=== PATIENT | female | born 2000 | race Caucasian/White ===

== ENCOUNTER 2024-05-01 09:09 | Emergency (ER) | payer SELFPAY ==
[~2024-05-01] VITALS: Ht 167.6 cm; Wt 115.9 kg
[~2024-05-01 09:09] MED LIST: REGLAN10 M2 PO; ZOFRAN ODT4 MG PO
[2024-05-01 09:51] LABS: BASO # 0.04 K/mm3 (0.02-0.10); EOS # 0.08 K/mm3 (0.04-0.40); EOS % 1.4 % (1.0-5.0); HEMATOCRIT 42.3 % (37.0-47.0); HEMOGLOBIN 14.8 g/dL (12.5-16.0); LYMPH# 1.96 K/mm3 (1.50-4.00); MEAN CELL VOLUME 88 fl (78-100); MEAN CORPUSCULAR HEMOGLOBIN 31 pg (27-31); MEAN CORPUSCULAR HGB CONC 35 g/dL (33-37); MEAN PLATELET VOLUME 10.4 fl (7.4-10.4); MONO # 0.29 K/mm3 (0.20-0.80); NEU # 3.29 K/mm3 (1.40-6.50); PLATELET COUNT 247 K/mm3 (130-400); RED CELL DISTRIBUTION WIDTH 11.5 % (11.5-14.5); WHITE BLOOD COUNT 5.7 K/mm3 (4.8-10.8)
[2024-05-01 09:58] LABS: ALBUMIN 4.3 g/dL (3.5-5.0)
[2024-05-01 09:59] LABS: CALCIUM 9.9 mg/dL (8.3-10.5)
[2024-05-01 10:00] LABS: TOTAL PROTEIN 6.5 g/dL (6.4-8.3)
[2024-05-01 10:02] LABS: TOTAL BILIRUBIN 0.4 mg/dL (0.2-1.2)
[2024-05-01 10:22] VITALS: BP 121/86
== END 2024-05-01 10:20 | disposition home or self-care (01) ==
LOC: ED 09:09
PROVIDERS: Physician Assistant
DX: N93.9 Abnormal uterine and vaginal bleeding, unspecified (principal)

== ENCOUNTER 2024-05-31 20:12 | Emergency (ER) | payer SELFPAY ==
[2024-05-31 20:27] VITALS: BP 146/87
[2024-05-31 21:04] LABS: URINE APPEARANCE CLEAR (CLEAR); URINE BILIRUBIN NEGATIVE (NEGATIVE); URINE BLOOD NEGATIVE (NEGATIVE); URINE COLOR YELLOW (YELLOW); URINE GLUCOSE NEGATIVE (NEGATIVE); URINE KETONE NEGATIVE (NEGATIVE); URINE LEUKOCYTE ESTERASE NEGATIVE (NEGATIVE); URINE MUCUS PRESENT (NOT PRESENT); URINE NITRATE NEGATIVE (NEGATIVE); URINE PROTEIN(semi-quant) NEGATIVE (NEGATIVE)
== END 2024-05-31 21:17 | disposition home or self-care (01) ==
LOC: ED 20:12
PROVIDERS: Nurse Practitioner
DX: R11.2 Nausea with vomiting, unspecified (principal); R53.83 Other fatigue

== ENCOUNTER 2024-06-04 12:05 | Emergency (ER) | payer SELFPAY ==
[~2024-06-04] VITALS: Ht 167.6 cm; Wt 118.3 kg
[2024-06-04 13:30] LABS: BASO # 0.04 K/mm3 (0.02-0.10); EOS # 0.07 K/mm3 (0.04-0.40); EOS % 0.8 % (1.0-5.0); HEMOGLOBIN 13.7 g/dL (12.5-16.0); LYMPH# 1.51 K/mm3 (1.50-4.00); MEAN CELL VOLUME 89 fl (78-100); MEAN CORPUSCULAR HEMOGLOBIN 31 pg (27-31); MEAN CORPUSCULAR HGB CONC 34 g/dL (33-37); MEAN PLATELET VOLUME 10.2 fl (7.4-10.4); MONO # 0.41 K/mm3 (0.20-0.80); NEU # 6.79 K/mm3 (1.40-6.50); PLATELET COUNT 233 K/mm3 (130-400); RED BLOOD COUNT 4.49 M/mm3 (4.10-5.30); RED CELL DISTRIBUTION WIDTH 11.6 % (11.5-14.5); WHITE BLOOD COUNT 8.8 K/mm3 (4.8-10.8)
[2024-06-04 13:36] LABS: ALBUMIN 4.1 g/dL (3.5-5.0); CALCIUM 9.4 mg/dL (8.3-10.5)
[2024-06-04 13:37] LABS: TOTAL PROTEIN 6.2 g/dL (6.4-8.3)
[2024-06-04 13:40] LABS: TOTAL BILIRUBIN 0.8 mg/dL (0.2-1.2)
[2024-06-04 14:06] LABS: PH-URINE 8.5 (5.0 - 8.0); URINE APPEARANCE CLOUDY (CLEAR); URINE BILIRUBIN NEGATIVE (NEGATIVE); URINE BLOOD 2+ (NEGATIVE); URINE COLOR YELLOW (YELLOW); URINE GLUCOSE NEGATIVE (NEGATIVE); URINE KETONE NEGATIVE (NEGATIVE); URINE NITRATE NEGATIVE (NEGATIVE); URINE PROTEIN(semi-quant) 2+ (NEGATIVE)
[2024-06-04 14:07] LABS: URINE LEUKOCYTE ESTERASE 3+ (NEGATIVE); URINE MUCUS PRESENT (NOT PRESENT); URINE WBC >50 /hpf (0-3)
[2024-06-04 14:13] LABS: URINE WBC >50 /hpf (0-3)
[2024-06-04 14:14] LABS: URINE MUCUS PRESENT (NOT PRESENT)
[2024-06-04] MEDS ORDERED: Nitrofurantoin (Mono/Macro) 100 MG CAPSULE PO ONE (14:45)
[2024-06-04] MEDS ORDERED: MACROBID 100 M100 MG PO (15:25)
[2024-06-04 15:37] VITALS: BP 112/67
== END 2024-06-04 16:07 | disposition home or self-care (01) ==
LOC: ED 12:05
PROVIDERS: Family Medicine
DX: R10.12 Left upper quadrant pain (principal); R10.32 Left lower quadrant pain; R30.0 Dysuria; R35.0 Frequency of micturition

== ENCOUNTER 2024-07-02 19:54 | Emergency (ER) | payer SELFPAY ==
[~2024-07-02] VITALS: Ht 167.6 cm; Wt 117.6 kg
[~2024-07-02 19:54] MED LIST changes: +MACROBID 100 M100 MG PO
[2024-07-02 20:33] LABS: URINE APPEARANCE CLOUDY (CLEAR); URINE COLOR YELLOW (YELLOW)
[2024-07-02 20:34] LABS: URINE BILIRUBIN 1+ (NEGATIVE); URINE BLOOD NEGATIVE (NEGATIVE); URINE GLUCOSE NEGATIVE (NEGATIVE); URINE KETONE TRACE (NEGATIVE); URINE LEUKOCYTE ESTERASE 2+ (NEGATIVE); URINE NITRATE NEGATIVE (NEGATIVE); URINE PROTEIN(semi-quant) TRACE (NEGATIVE); URINE WBC 16-30 /hpf (0-3)
[2024-07-02 20:35] LABS: URINE MUCUS PRESENT (NOT PRESENT)
[2024-07-02] MEDS ORDERED: MACROBID 100 M100 MG PO (20:40)
[2024-07-02] MEDS ORDERED: Nitrofurantoin (Mono/Macro) 100 MG CAPSULE PO ONE (20:45)
[2024-07-02] MEDS ORDERED: CEFDINIR300 MG PO (20:50)
[2024-07-02] MEDS ORDERED: Cefdinir 300 MG CAP PO ONE (21:15)
[2024-07-02 21:24] VITALS: BP 112/81
== END 2024-07-02 21:24 | disposition home or self-care (01) ==
LOC: ED 19:54
PROVIDERS: Physician Assistant
DX: N39.0 Urinary tract infection, site not specified (principal); Z88.1 Allergy status to other antibiotic agents

== ENCOUNTER → 2024-07-17 | Outpatient (CLI) | payer SELFPAY ==
[~2024-07-17] MED LIST changes: +CEFDINIR300 MG PO
== END ==
LOC: LAB 18:59
DX: R30.0 Dysuria (principal)

== ENCOUNTER 2024-08-08 20:00 | Emergency (ER) | payer SELFPAY ==
[2024-08-08] MEDS ORDERED: KETOROLAC10 MG PO (21:36)
[2024-08-08] MEDS ORDERED: ZOFRAN ODT4 MG PO (21:36)
[2024-08-08] MEDS ORDERED: Home Ketorolac 10 MG #4 TABS/PACK PO ONE (21:45)
[2024-08-08] MEDS ORDERED: Home Ondansetron ODT 4 MG #2 ODT/PACK PO ONE (21:45)
[2024-08-08] MEDS ORDERED: Ketorolac 10 MG TAB PO ONE (21:45)
[2024-08-08 23:02] VITALS: BP 134/68
== END 2024-08-08 21:51 | disposition home or self-care (01) ==
LOC: ED 20:00
DX: A08.4 Viral intestinal infection, unspecified (principal); Z87.19 Personal history of other diseases of the digestive system

== ENCOUNTER 2024-08-12 08:53 | Emergency (ER) | payer SELFPAY ==
[~2024-08-12] VITALS: Ht 170.2 cm; Wt 119.8 kg
[~2024-08-12 08:53] MED LIST changes: +KETOROLAC10 MG PO
[2024-08-12] MEDS ORDERED: NS 1,000 ML IV SCH ×2 (09:30→11:45)
[2024-08-12 09:57] LABS: BASO # 0.02 K/mm3 (0.02-0.10); EOS # 0.06 K/mm3 (0.04-0.40); HEMATOCRIT 39.8 % (37.0-47.0); HEMOGLOBIN 14.1 g/dL (12.5-16.0); LYMPH# 1.26 K/mm3 (1.50-4.00); MEAN CELL VOLUME 89 fl (78-100); MEAN CORPUSCULAR HEMOGLOBIN 32 pg (27-31); MEAN CORPUSCULAR HGB CONC 35 g/dL (33-37); MEAN PLATELET VOLUME 10.4 fl (7.4-10.4); MONO # 0.31 K/mm3 (0.20-0.80); NEU # 4.41 K/mm3 (1.40-6.50); PLATELET COUNT 227 K/mm3 (130-400); RED BLOOD COUNT 4.48 M/mm3 (4.10-5.30); RED CELL DISTRIBUTION WIDTH 11.3 % (11.5-14.5); WHITE BLOOD COUNT 6.1 K/mm3 (4.8-10.8)
[2024-08-12 10:04] LABS: ALBUMIN 3.8 g/dL (3.5-5.0)
[2024-08-12 10:05] LABS: CALCIUM 8.6 mg/dL (8.3-10.5)
[2024-08-12 10:07] LABS: TOTAL PROTEIN 5.9 g/dL (6.4-8.3)
[2024-08-12 10:08] LABS: TOTAL BILIRUBIN 0.3 mg/dL (0.2-1.2)
[2024-08-12] MEDS ORDERED: Iohexol 300 - 100 ML VIAL IV ONE (10:48)
[2024-08-12 13:01] VITALS: BP 100/75
== END 2024-08-12 13:04 | disposition short-term general hospital (02) ==
LOC: ED 08:53
PROVIDERS: Physician Assistant
DX: K85.10 Biliary acute pancreatitis without necrosis or infection (principal)
CPT/HCPCS: J7030; Q9967